=== PATIENT | female | born 1990 | race Caucasian/White ===

== ENCOUNTER 2022-03-16 13:52 | Emergency (ER) | payer OTHER ==
[2022-03-16] VITALS (27 sets, daily range): BP systolic 88–120; BP diastolic 41–73
[2022-03-16 14:21] LABS: BASO% 0.4 % (0-3); EOS% 6.7 % (0-8); HEMATOCRIT 33.5 % (37.0-47.0); HEMOGLOBIN 10.8 g/dl (12.0-16.0); LYMPH% 31.9 % (15-41); MEAN CELL VOLUME 96.8 fL CALC (80.0-100.0); MEAN CORPUSCULAR HGB 31.2 pG CALC (26.0-32.0); MEAN CORPUSCULAR HGB CONC 32.2 g/dL CAL (32.0-36.0); MONO% 5.7 % (2-13); NEUT# 4.46 thou/uL (2.00-7.15); NEUT% 55.3 % (42-76); RED BLOOD COUNT 3.46 mill/uL (4.20-5.60); RED CELL DISTRI WIDTH 13.7 % (11.5-15.5)
[2022-03-16] MEDS ORDERED: INVEGA6 MG PO (14:30)
[2022-03-16] MEDS ORDERED: CLONAZEPAM1 MG PO (14:30)
[2022-03-16] MEDS ORDERED: PAXIL30 MG PO (14:30)
[2022-03-16] MEDS ORDERED: MIRTAZAPINE15 MG PO (14:31)
[2022-03-16] MEDS ORDERED: PERCOCET 5/325M1 TAB PO (14:31)
[2022-03-16 14:44] LABS: ALBUMIN 3.8 g/dL (3.2-5.0); ALKALINE PHOSPHATASE 77 u/l (38-126); ANION GAP 7 (6-22 (CALC)); BILIRUBIN, TOTAL 0.1 mg/dL (0.0-1.4); CARBON DIOXIDE 28 mmol/l (22-30); CHLORIDE 109 mmol/l (95-108); POTASSIUM 3.6 mmol/l (3.5-5.1); SGOT/AST 67 u/l (14-36); SODIUM 140 mmol/l (137-146); TOTAL PROTEIN 6.3 g/dL (6.3-8.2)
[2022-03-16 14:49] LABS: BUN 8 mg/dL (7-17); BUN/CREATININE RATIO 11 (12-20 (CALC)); CREATININE 0.7 mg/dL (0.5-1.0); GFR FOR AFR.AMER. > 60 ML/MIN (>=60 (CALC)); GFR OTHER RACES > 60 ML/MIN (>=60 (CALC))
[2022-03-16] MEDS ORDERED: PREDNISONE50 MG PO (17:15)
[2022-03-16] MEDS ORDERED: EPIPEN 2-P0.3 MG/0.3 IM (17:16)
[2022-03-16] MEDS ORDERED: ALL DAY10 MG PO (17:16)
== END 2022-03-16 20:23 | disposition home or self-care (01) | DRG 916 ==
LOC: ED 13:52
PROVIDERS: Family Medicine
DX: T78.40XA Allergy, unspecified, initial encounter (principal); T78.3XXA Angioneurotic edema, initial encounter

== ENCOUNTER 2022-03-18 13:59 | Emergency (ER) | payer OTHER ==
[~2022-03-18] VITALS: Ht 157.5 cm; Wt 60.5 kg
[2022-03-18] VITALS (9 sets, daily range): BP systolic 104–120; BP diastolic 54–74
[~2022-03-18 13:59] MED LIST: ALL DAY10 MG PO; CLONAZEPAM1 MG PO; EPIPEN 2-P0.3 MG/0.3 IM; INVEGA6 MG PO; MIRTAZAPINE15 MG PO; PAXIL30 MG PO; PERCOCET 5/325M1 TAB PO; PREDNISONE50 MG PO
[2022-03-18 14:22] LABS: BASO% 0.1 % (0-3); EOS% 0.8 % (0-8); HEMATOCRIT 32.6 % (37.0-47.0); HEMOGLOBIN 10.5 g/dl (12.0-16.0); IMMATURE GRANULOCYTES 0.2 % (0.0-5.0); LYMPH% 26.9 % (15-41); MEAN CELL VOLUME 95.6 fL CALC (80.0-100.0); MEAN CORPUSCULAR HGB 30.8 pG CALC (26.0-32.0); MEAN CORPUSCULAR HGB CONC 32.2 g/dL CAL (32.0-36.0); MONO% 5.8 % (2-13); NEUT# 7.84 thou/uL (2.00-7.15); NEUT% 66.2 % (42-76); RED BLOOD COUNT 3.41 mill/uL (4.20-5.60); RED CELL DISTRI WIDTH 14.4 % (11.5-15.5)
[2022-03-18 14:36] LABS: ALKALINE PHOSPHATASE 58 u/l (38-126); ANION GAP 7 (6-22 (CALC)); BUN 9 mg/dL (7-17); BUN/CREATININE RATIO 15 (12-20 (CALC)); CARBON DIOXIDE 28 mmol/l (22-30); CHLORIDE 108 mmol/l (95-108); CREATININE 0.6 mg/dL (0.5-1.0); GFR FOR AFR.AMER. > 60 ML/MIN (>=60 (CALC)); GFR OTHER RACES > 60 ML/MIN (>=60 (CALC)); POTASSIUM 3.4 mmol/l (3.5-5.1); SGOT/AST 58 u/l (14-36); SODIUM 140 mmol/l (137-146); TOTAL PROTEIN 6.6 g/dL (6.3-8.2)
[2022-03-18 14:37] LABS: BILIRUBIN, TOTAL 0.2 mg/dL (0.02-1.3)
[2022-03-18] MEDS ORDERED: PEPCID20 MG PO (15:47)
[2022-03-18] MEDS ORDERED: DIPHENHYDRAM50 M2 PO (15:47)
[2022-03-18] MEDS ORDERED: MEDDOSEPAK PO (15:47)
== END 2022-03-18 16:01 | disposition home or self-care (01) | DRG 916 ==
LOC: ED 13:59
PROVIDERS: Emergency Medicine
DX: T78.40XA Allergy, unspecified, initial encounter (principal); X58.XXXA Exposure to other specified factors, initial encounter

== ENCOUNTER 2022-04-13 06:50 | Emergency (ER) | payer OTHER ==
[~2022-04-13] VITALS: Ht 157.5 cm; Wt 55.0 kg
[~2022-04-13 06:50] MED LIST changes: +DIPHENHYDRAM50 M2 PO; +MEDDOSEPAK PO; +PEPCID20 MG PO
[2022-04-13 08:46] LABS: URINE BILIRUBIN - DIPSTICK NEGATIVE (NEGATIVE); URINE BLOOD DIPSTICK SMALL (NEGATIVE); URINE COLOR YELLOW; URINE GLUCOSE - DIPSTICK NEGATIVE (NEGATIVE); URINE KETONE NEGATIVE (NEGATIVE); URINE LEUK ESTERASE NEGATIVE (NEGATIVE); URINE PH 5.5 (4.5-8.0); URINE PROTEIN - DIPSTICK NEGATIVE (NEG-TRACE); URINE SPECIFIC GRAVITY >=1.030; URINE UROBILINOGEN - DIPSTICK 0.2 E.U./dL (0.2)
[2022-04-13 08:46] LABS: BASO% 0.4 % (0-3); EOS% 2.2 % (0-8); IMMATURE GRANULOCYTES 0.1 % (0.0-5.0); MEAN CELL VOLUME 97.6 fL CALC (80.0-100.0); MEAN CORPUSCULAR HGB 30.2 pG CALC (26.0-32.0); MEAN CORPUSCULAR HGB CONC 30.9 g/dL CAL (32.0-36.0); MONO% 7.1 % (2-13); NEUT# 4.53 thou/uL (2.00-7.15); NEUT% 55.2 % (42-76); RED BLOOD COUNT 4.14 mill/uL (4.20-5.60)
[2022-04-13 08:49] LABS: URINE EPITHELIAL CELLS FEW EPI/hpf (0-FEW); URINE NITRITE - DIPSTICK NEGATIVE (Negative)
[2022-04-13 08:58] LABS: HEMATOCRIT 40.4 % (37.0-47.0); HEMOGLOBIN 12.5 g/dl (12.0-16.0)
[2022-04-13 09:07] LABS: ALBUMIN 4.6 g/dL (3.2-5.0); ALKALINE PHOSPHATASE 70 u/l (38-126); ANION GAP 12 (6-22 (CALC)); BILIRUBIN, TOTAL 0.1 mg/dL (0.02-1.3); BUN 9 mg/dL (7-17); BUN/CREATININE RATIO 11 (12-20 (CALC)); CARBON DIOXIDE 26 mmol/l (22-30); CHLORIDE 107 mmol/l (95-108); CREATININE 0.8 mg/dL (0.5-1.0); GFR FOR AFR.AMER. > 60 ML/MIN (>=60 (CALC)); GFR OTHER RACES > 60 ML/MIN (>=60 (CALC)); POTASSIUM 4.4 mmol/l (3.5-5.1); SGOT/AST 23 u/l (14-36); SODIUM 141 mmol/l (137-146); TOTAL PROTEIN 7.5 g/dL (6.3-8.2)
[2022-04-13 09:10] LABS: HCG SERUM/URINE (NEG/POS) NEGATIVE (NEGATIVE)
[2022-04-13] MEDS ORDERED: MONISTAT1 VA (10:19)
[2022-04-13 10:21] VITALS: BP 132/86
== END 2022-04-13 10:30 | disposition home or self-care (01) | DRG 923 ==
LOC: ED 06:50
PROVIDERS: Emergency Medicine
DX: T74.21XA Adult sexual abuse, confirmed, initial encounter (principal); Y07.9 Unspecified perpetrator of maltreatment and neglect; N76.0 Acute vaginitis